=== PATIENT | male | born 1970 | race Caucasian/White ===

== ENCOUNTER 2020-08-27 08:25 | Day surgery (SDC) | payer OTHER ==
[~2020-08-27] VITALS: Ht 167.6 cm; Wt 82.5 kg
[2020-08-27] MEDS ORDERED: CHLORHEXIDINE 15 ML UDC ONE (09:21)
[2020-08-27 09:23] VITALS: BP 156/103
[2020-08-27] MEDS ORDERED: LACTATED RINGERS 1,000 ML IV SCH (09:30)
[2020-08-27] MEDS ORDERED: CHLORHEXIDINE 15 ML UDC MM ONE (09:30)
[2020-08-27] MEDS ORDERED: EPINEPHRINE 1 MG/ML, 1ML ONE (11:05)
[2020-08-27] MEDS ORDERED: LIDOCAINE/PF 1%, 30ML ONE (11:05)
[2020-08-27] MEDS ORDERED: BUPIVACAINE/PF 0.5% ONE (11:05)
[2020-08-27] MEDS ORDERED: FENTANYL PF 100 MCG/2ML ONE ×2 (11:13→12:52)
[2020-08-27] MEDS ORDERED: MIDAZOLAM 1 MG/ML, 2ML ONE (11:13)
[2020-08-27] MEDS ORDERED: HYDROmorphone 1 MG/ML, 1ML INJ IVPush PRN (11:30)
[2020-08-27] MEDS ORDERED: LORazepam 2 MG/ML, 1ML IVPush PRN (11:30)
[2020-08-27] MEDS ORDERED: hydrALAzine 20 MG/ML, 1ML IV PRN (11:30)
[2020-08-27] MEDS ORDERED: PROMETHAZINE 25 MG SUPP PR PRN (11:30)
[2020-08-27] MEDS ORDERED: LABETALOL 5MG/ML, 20ML IV PRN (11:30)
[2020-08-27] MEDS ORDERED: ONDANSETRON 2MG/ML, 2ML IVPush PRN (11:30)
[2020-08-27] MEDS ORDERED: OXYcodone 5 MG/5 ML ORAL.SOL UDC PO PRN (11:30)
[2020-08-27] MEDS ORDERED: ACETAMINOPHEN 325 MG TABLET PO PRN (11:30)
[2020-08-27] MEDS ORDERED: METHOCARBAMOL 1,000 MG in DEXTROSE 5% 100 ML IV PRN (11:30)
[2020-08-27] MEDS ORDERED: PROMETHAZINE 25 MG/ML, 1ML IVPush PRN (11:30)
[2020-08-27] MEDS ORDERED: PROPOFOL 10 MG/ML, 20ML ONE (12:08)
[2020-08-27] MEDS ORDERED: ONDANSETRON 2MG/ML, 2ML ONE (12:08)
[2020-08-27] MEDS ORDERED: CEFAZOLIN 1,000 MG ONE (12:08)
[2020-08-27] MEDS ORDERED: DEXAMETHASONE 4 MG/ML, 1ML ONE (12:08)
[2020-08-27] MEDS ORDERED: ACETAMINOPHEN 650 MG/20.3 ML UDC ONE (12:51)
[2020-08-27] MEDS ORDERED: OXYcodone 5 MG/5 ML ORAL.SOL UDC ONE (12:52)
[2020-08-27] MEDS: FENTANYL PF 100 MCG/2ML IV PRN ×4 (12:56→13:18)
== END 2020-08-27 14:45 | disposition home or self-care (01) ==
LOC: OUT 08:25
PROVIDERS: ATTEND Orthopaedic Surgery
DX: S83.232A Complex tear of medial meniscus, current injury, left knee, initial encounter (principal); M94.262 Chondromalacia, left knee; M25.562 Pain in left knee; M67.52 Plica syndrome, left knee; Z20.828 Contact with and (suspected) exposure to other viral communicable diseases; X58.XXXA Exposure to other specified factors, initial encounter; Y93.89 Activity, other specified; Y92.89 Other specified places as the place of occurrence of the external cause; Y99.8 Other external cause status; Z72.89 Other problems related to lifestyle
CPT/HCPCS: 29881; 87635; J0171; J0690; J1100; J2250; J2405; J2704; J3010; J7120